=== PATIENT | female | born 1960 | race Caucasian/White ===

== ENCOUNTER 2020-01-26 11:33 | Emergency (ER) | payer BC, OTHER ==
[~2020-01-26] VITALS: Ht 162.6 cm; Wt 127.0 kg
--- OUTSIDE RECORDS SUMMARY | 2020-01-26 11:35 | XMS REPORT ---
Author [facility] Address Unknown Phone Unavailable Care Team Providers Care Peeler Operator Name Role Phone Unavailable Unavailable Payers Payer Name Policy Type Policy Number Effective Date Expiration Date Problems This patient has no known problems. Allergies, Adverse Reactions, Alerts Allergy Name Allergy Type Status Severity Reaction(s) Onset Date Inactive Date Treating Clinician Comments No Known Contrast Allergies DA Active U 2008-12-26 00:00:00 No Known Drug Allergies DA Active U 2008-12-26 00:00:00 No Known Food Allergies DA Active U 2008-12-26 00:00:00 No Known Other Allergies DA Active U 2008-12-26 00:00:00 Medications This patient has no known medications.
[2020-01-26] MEDS ORDERED: SODIUM CHLORIDE 0.9% 1000ML 1,000 ML IV STA (12:02)
[2020-01-26] MEDS ORDERED: ONDANSETRON HCL INJ 2MG/ML 2ML 2 MG/ML VIAL IV STA (12:02)
[2020-01-26] MEDS ORDERED: DICYCLOMINE HCL 20 MG/2 ML VIAL IM ONE (12:15)
[2020-01-26 12:21] LABS: BASOPHILS % 0.2 % (0.0-1.0); EOSINOPHILS # (AUTO) 0.1 (0.0-0.4); HEMATOCRIT 41.2 % (34.2-44.1); HEMOGLOBIN 13.7 g/dL (12.0-16.0); LYMPHOCYTES # (AUTO) 1.9 (1.0-3.2); LYMPHOCYTES % 21.6 % (18.0-39.1); MEAN CORPUSCULAR HEMOGLOBIN 28.8 pg (28-32); MEAN CORPUSCULAR HGB CONC 33.3 g/dL (31-35); MEAN CORPUSCULAR VOLUME 86.6 fL (81-99); MONOCYTES # (AUTO) 0.3 (0.2-0.8); MONOCYTES % 3.8 % (4.4-11.3); NEUTROPHILS # (AUTO) 6.3 (2.1-6.9); NEUTROPHILS % 73.1 % (38.7-80.0); PLATELET COUNT 225 x10e3/uL (140-360); RED BLOOD COUNT 4.76 x10e6/uL (3.6-5.1); RED CELL DISTRIBUTION WIDTH 13.9 % (11.7-14.4)
[2020-01-26 12:33] LABS: CLARITY,URINE CLEAR (CLEAR); COLOR,URINE YELLOW (YELLOW)
[2020-01-26 12:34] LABS: BILIRUBIN,URINE NEGATIVE (NEGATIVE); KETONES,URINE NEGATIVE (NEGATIVE); LEUKOCYTE ESTERASE ,URINE MODERATE (NEGATIVE); NITRITE,URINE NEGATIVE (NEGATIVE); PROTEIN,URINE DIPSTICK NEGATIVE (NEGATIVE); URINE UROBILINOGEN 0.2 mg/dL (0.2 - 1)
[2020-01-26 12:46] LABS: INR 0.88; PROTHROMBIN TIME 12.4 seconds (11.9-14.5)
[2020-01-26 12:46] LABS: BACTERIA,URINE FEW /HPF; EPITHELIAL CELLS,URINE RARE /LPF; RBC,URINE 0-5 /HPF (0-5)
[2020-01-26 12:47] LABS: PARTIAL THROMBOPLASTIN TIME 29.3 seconds (23.8-35.5)
[2020-01-26 15:00] LABS: ALANINE AMINOTRANSFERASE 21 IU/L (0-55); ALBUMIN 4.1 g/dL (3.5-5.0); ALBUMIN/GLOBULIN RATIO 1.3 (0.8-2.0); ALKALINE PHOSPHATASE 89 IU/L (40-150); ANION GAP 10.6 mmol/L (8-16); BLOOD UREA NITROGEN 10 mg/dL (7-26); BUN/CREATININE RATIO 14 (6-25); CALCIUM 8.8 mg/dL (8.4-10.2); CARBON DIOXIDE 26 mmol/L (22-29); CHLORIDE 104 mmol/L (98-107); CREATINE KINASE 241 IU/L (29-168); EST GLOMERULAR FILTRATION RATE > 60 ML/MIN (60-); GLUCOSE 108 mg/dL (74-118); LIPASE 15 U/L (8-78); MAGNESIUM 1.8 MG/DL (1.3-2.1); POTASSIUM 3.6 mmol/L (3.5-5.1); SODIUM 137 mmol/L (136-145)
--- NOTE | 2020-01-26 15:38 | Diagnostic Imaging Report ---
TECHNIQUE: Frontal view of the chest. INDICATION: 59-year-old woman with abdominal pain, nausea, vomiting, and diarrhea. COMPARISON: None. FINDINGS: LINES/TUBES: None. LUNGS: The lungs are well inflated and clear. PLEURA: No pneumothorax or significant pleural effusion. HEART AND MEDIASTINUM: Cardiac silhouette appears mildly prominent. SOFT TISSUES AND BONES: Unremarkable. IMPRESSION: No acute pulmonary abnormalities. Cardiac silhouette appears mildly prominent. Signed by: Dinah Arreguin MD on 01/26/2020 3:36 PM
[2020-01-26] MEDS ORDERED: PIPER-TAZ 3.375 GM 50 ML IV ONE (15:45)
[2020-01-26] MEDS ORDERED: SODIUM CHLORIDE 0.9% 50ML 50 ML ONE (15:57)
[2020-01-26] MEDS ORDERED: IOPAMIDOL 370 MG/ML 200 ML INFUS..BTL INJ ONE (15:57)
--- NOTE | 2020-01-26 16:53 | Diagnostic Imaging Report ---
TECHNIQUE: CT of the abdomen and pelvis WITH intravenous contrast and WITHOUT oral contrast. Dose modulation, iterative reconstruction, and/or weight-based adjustment of the mA/kV was utilized to reduce the radiation dose to as low as reasonably achievable. INDICATION: 59-year-old woman with lower abdominal pain, nausea, vomiting, and diarrhea. COMPARISON: None. FINDINGS: LOWER THORAX: Unremarkable. HEPATOBILIARY: No focal hepatic lesions. Cholelithiasis in an otherwise unremarkable gallbladder. No biliary ductal dilatation. SPLEEN: No splenomegaly. PANCREAS: No focal masses or ductal dilatation. ADRENALS: No adrenal nodules. KIDNEYS/URETERS: No hydronephrosis, stones, or solid mass lesions. PELVIC ORGANS/BLADDER: Uterus and both ovaries are grossly unremarkable. Bladder is under distended. PERITONEUM/RETROPERITONEUM: No free air or fluid. LYMPH NODES: No lymphadenopathy. VESSELS: Unremarkable. GI TRACT: Apparent thickened wall of the underdistended sigmoid. No bowel obstruction. Sigmoid diverticula. Normal appendix. BONES AND SOFT TISSUES: Degenerative changes of the visualized spine. Soft tissues are unremarkable. IMPRESSION: Apparent thickened wall of the sigmoid may be due to underdistention or muscular hypertrophy from chronic diverticulosis. Colitis or neoplasm cannot be excluded. No bowel obstruction. Cholelithiasis. Signed by: Dinah Arreguin MD on 01/26/2020 4:51 PM
[2020-01-26 18:10] LABS: CREATINE KINASE 213 IU/L (29-168)
[2020-01-26 18:43] VITALS: BP 147/84
== END 2020-01-26 19:03 | disposition home or self-care (01) ==
LOC: ER 11:33
DX: R10.32 Left lower quadrant pain (principal); N30.90 Cystitis, unspecified without hematuria; K57.32 Diverticulitis of large intestine without perforation or abscess without bleeding
CPT/HCPCS: 36415; 71045; 74177; 80053; 81001; 82550; 82553; 83690; 83735; 84484; 85025; 85610; 85730; 87086; 99284; J0500; J2405; J2543; J7030; Q9967